=== PATIENT | male | born 1980 ===

== ENCOUNTER 2016-08-04 02:40 | Emergency (ER) | payer SELFPAY ==
[~2016-08-04] VITALS: Ht 170.2 cm; Wt 75.0 kg
[2016-08-04 02:40] VITALS: Ht 170.2 cm; Wt 75.0 kg
[2016-08-04] MEDS ORDERED: LORAZEPAM 2 MG INJ IM ONE ×2 (03:30→04:00)
[2016-08-04] MEDS ORDERED: HALOPERIDOL 5 MG INJ IM ONE (03:30)
[2016-08-04] MEDS ORDERED: DIPHENHYDRAMINE 50 MG INJ IM ONE (03:30)
--- NOTE | 2016-08-04 04:43 | RADRPT ---
PROCEDURE: CT Brain without contrast. CLINICAL INDICATION: Trauma TECHNIQUE: A CT of the brain was performed utilizing axial imaging from the skull base through the vertex without IV contrast. Multiplanar reformatted images were made. Images were reviewed on a [employer] workstation. The CTDIvol is 45.01 times 3 mGy and the DLP is 1800.57 mGycm. Exam was repeated d ue to patient motion. One or more the following dose reduction techniques were utilized: Automated exposure control, adjus tment of the mA/ or kV according to patient's size, or use of iterative reconstruction technique. COMPARISON: None FINDINGS: There is no intracranial hemorrhage, mass effect, or midline shift. No extra-axial fluid collection is seen. The ventricles and sulci are normal in size and configuration. The density of the brain is normal, and the pelayo white matter differentiation appears well-preserved. Likely retention cysts in left maxillary sinus and mucosal thickening in bilateral maxillary sinuses. No skull fracture seen . IMPRESSION: 1. No evidence of acute intracranial pathology. Right frontal scalp laceration and skin shey. 2. The brain is normal in appearance. RPTAT: HJES .Donavon Whitehead MD, MD Date Time Electronically viewed and signed by .Donavon Whitehead MD, MD on 08/04/2016 04:42 .S/
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
[2016-08-04 10:05] VITALS: BP 106/72; PULSE 58; RESP 18
== END 2016-08-04 10:10 | disposition home or self-care (01) ==
LOC: E/R 02:40
DX: S01.01XA Laceration without foreign body of scalp, initial encounter (principal); R40.2142 Coma scale, eyes open, spontaneous, at arrival to emergency department; R40.2252 Coma scale, best verbal response, oriented, at arrival to emergency department; R40.2362 Coma scale, best motor response, obeys commands, at arrival to emergency department; Y09 Assault by unspecified means; Y92.9 Unspecified place or not applicable
CPT/HCPCS: 12001; 70450; J2060; 96372